=== PATIENT | female | born 1955 | race Two or more races ===

== ENCOUNTER 2021-09-23 12:31 | Emergency (ER) | payer MEDICARE, BC ==
[2021-09-23] MEDS ORDERED: 50% Dextrose in Water 50 ML Syringe IVPUSH ONE (12:41)
[2021-09-23] MEDS ORDERED: Sodium Chloride 0.9% 1,000 ML IV ONE (12:41)
[2021-09-23] MEDS ORDERED: Sodium Chloride 0.9% 10 ML Syringe FLUSH PRN (12:42)
[2021-09-23] MEDS ORDERED: Sodium Chloride 0.9% 2.5 ML Syringe FLUSH PRN (12:42)
[2021-09-23 13:11] LABS: BLOOD UREA NITROGEN,BUN 73 mg/dL (7.0-18.0); CARBON DIOXIDE,CO2 19.4 mmol/L (21.0-32.0); CHLORIDE,CL 96 mmol/L (98-107); POTASSIUM,K 4.1 mmol/L (3.5-5.1); SODIUM,NA 131 mmol/L (136-145)
[2021-09-23 13:12] LABS: GLUCOSE RANDOM 39 mg/dL (74-106)
== END 2021-09-23 15:10 | disposition home or self-care (01) ==
LOC: MW.ED 12:31
DX: E11.649 Type 2 diabetes mellitus with hypoglycemia without coma (principal); E11.22 Type 2 diabetes mellitus with diabetic chronic kidney disease; N18.9 Chronic kidney disease, unspecified; Z88.8 Allergy status to other drugs, medicaments and biological substances; Z20.822 Contact with and (suspected) exposure to COVID-19
CPT/HCPCS: 36415; 71045; 80053; 81001; 82947; 83735; 85025; 93005; 96361; 96374; 99285; J3490; J7030; U0002; 99284